=== PATIENT | female | born 1955 | race Caucasian/White ===

== ENCOUNTER 2016-12-23 11:57 | Emergency (ER) | payer MEDICAID ==
--- OUTSIDE RECORDS SUMMARY | 2016-12-23 13:11 | XMS REPORT | Continuity of Care Document ---
:1955 Author Organization [facility] ([facility]) Address [place] [address] Phone [phone] Care Team Providers Name Role Phone Isrrael Mo Primary Care Provider [phone] Source Comments This disclosure is being made pursuant to the Care Everywhere program, applicable federal and state laws, and may not contain all informaitonavailable regarding this patient.[facility] ([facility]) Active Allergies and Adverse Reactions No Known Allergies Current Medications Prescription Sig. Disp. Refills Start Date End Date Status levothyroxine (SYNTHROID) take 200 mcg by Active 200 mcg tablet mouth daily. simvastatin (ZOCOR) 40 mg take 40 mg by Active tablet mouth every evening. 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 Social History Tobacco Use Types Packs/Day Years Used Date Never Smoker Smokeless Tobacco: Never Used Last Filed Vital Signs Vital Sign Reading Time Taken Blood Pressure 141/74 09/25/2012 2:42 PM CDT Pulse 90 09/25/2012 2:42 PM CDT Temperature 37.1 C (98.8 F) 09/25/2012 2:42 PM CDT Respiratory Rate 16 03/27/2012 8:51 AM CDT Height 1.76 m (5' 9.29") 12/24/2008 8:37 AM CDT Weight 91 kg (200 lb 9.9 oz) 09/25/2012 2:42 PM CDT Body Mass Index 29.38 09/25/2012 2:42 PM CDT Oxygen Saturation 99% 03/27/2012 8:51 AM CDT Plan of Care Health Maintenance Due Date Last Done Comments HCV Screening 1955 Hepatitis B Vaccine (1 of 3 - Primary Series) 1955 Tdap Vaccine 1966 Lipid Disorder Screening 1973 Td Vaccine 1973 Cervical Cancer Screening 1985 Mammogram 1995 Colonoscopy 05/24/2005 Zoster Vaccine 2015 Influenza Vaccine: Seasonal (Season Ended) 2017 Results from Last 3 Months Not on file
[2016-12-23] MEDS ORDERED: KETOROLAC TROMETHAMINE 60 MG/2 ML VIAL IM ONE ×2 (13:14→13:37)
[2016-12-23] MEDS ORDERED: DIPHTH,PERTUSS(ACELL),TET VAC 0.5 ML VIAL IM ONE ×2 (13:23→13:38)
--- NOTE | 2016-12-23 14:48 | ERNOTE ---
Upper Extremity HPI - Narrative Date of Service: 12/23/16 - General Extremities Pain Location: thumb: right Time Seen by Provider: 12/23/16 12:55 Source: patient Exam Limitations: no limitations - Immun/Allergies/Home Medications Immunizations: IMMUNIZATION HX Immunizations Up to Date Yes History of Influenza Vaccine Yes Hx Pneumococcal Vaccination Yes Allergies/Adverse Reactions: Allergies Allergy/AdvReac Type Severity Reaction Status Date / Time No Known Allergies Allergy Verified 12/23/16 12:23 Home Medications: HOME MEDICATIONS Atorvastatin Calcium 20 mg PO DAILY 12/23/16 [Last Taken Unknown] Cephalexin Monohydrate [Keflex] 500 mg PO QID #20 cap 12/23/16 [Last Taken Unknown] HYDROcodone/ACETAMINOPHEN [Hydrocodon-Acetaminophen 5-325] 1 each PO TID PRN # 20 tablet 12/23/16 [Last Taken Unknown] Levothyroxine Sodium [Synthroid] 150 mcg PO DAILY 12/23/16 [Last Taken Unknown] - History of Present Illness Narrative: 1-year-old female presenting to the emergency room after sure her left thumb was crushed between a tire and a cinderblock. Patient has a hematoma under her left thumbnail. Patient also complains of pretty severe thumb pain. Date (Duration): 12/23/16 Occurred: just prior to arrival Location of Incident: home Severity: mild Method of Injury: Reports: direct blow Loss of Consciousness: Reports: no loss of consciousness Modifying Factors - (Improves): Reports: immobilization Modifying Factors - (Worsens): Reports: movement Other Injuries: Reports: none Review of Systems - Review of Systems Constitutional: Present: no symptoms reported EYE: Present: no symptoms reported ENT: Present: no symptoms reported Respiratory: Present: no symptoms reported Cardiology: Present: no symptoms reported Gastrointestinal/Abdominal: Present: no symptoms reported Genitourinary: Present: no symptoms reported Musculoskeletal: Present: See HPI Skin: Present: See HPI Neurological: Present: no symptoms reported Endocrine: Present: no symptoms reported Hematologic/Lymphatic: Present: no symptoms reported Psych: Present: no symptoms reported All Other Systems: All systems neg except as marked - Patient's Past Medical History Patient History - Medical: Hypothyroidism Patient History - Cardiac/Respiratory: Hyperlipidemia Patient History - Cancer: Breast Patient History - Surgical Procedures: Other Patient History - Other: None LMP (females 10-50): Menopausal - Social History Living Situations: home Abuse History: No History of abuse Psych History: No pertinent hx Smoking Status: Never smoker Alcohol Use: none Drug Use: none - Immunizations Immunizations Up to Date: Yes Hx Pneumococcal Vaccination: Yes History of Influenza Vaccine: Yes Physical Exam - Physical Exam Narrative: patiens left thumb has a large hematoma under nail bed. area is painful. General Appearance: Present: wd/wn, alert, mild distress Eye Exam: Normal inspection: bilateral Ears, Nose, Throat: Present: normal ENT inspection, normal pharynx Neck: Present: normal inspection, nontender Respiratory: Present: no respiratory distress, normal breath sounds, lungs clear Cardiovascular/Chest: Present: regular rate, rhythm, normal peripheral pulses Peripheral Pulses: N=norm/S=strong/W=weak/B=bound/A=absent: Radial (R): Normal, Radial (L): Normal Gastrointestinal/Abdominal: Present: normal bowel sounds Back Exam: Present: normal inspection, normal range of motion Extremity Exam: Present: normal except - - see note Neurological Exam: Present: alert, oriented, normal mood/affect Skin Exam: Present: normal color Lymphatic Exam: Present: no adenopathy ED Progress - Vital Signs Patient's Vital Signs:: I have reviewed the patient's vital signs. Vital Signs: Vital Signs 12/23/16 12:18 Temperature 36.6 C Pulse Rate 78 Respiratory 16 Rate Blood Pressure 151/102 O2 Sat by Pulse 99 Oximetry - X-Ray X-Ray #1 X-Ray: hand Interpretation: Reviewed by me X-ray Comments: Findings: There is narrowing of the interphalangeal joint with associated spurring. There may be a fractured spur along the ventral aspect of the interphalangeal joint. The remaining osseous structures of the thumb appear intact and I'm not convinced of fracture or dislocation. The first metacarpal/phalangeal joint is maintained. The first metacarpal appears normal. There is narrowing of the interphalangeal joints involving the remaining aspects of the hand suggesting early osteoarthritic change. I 'm not convinced of an acute osseous abnormality involving the remaining aspects of the hand on this AP projection. IMPRESSION: 1. NARROWING OF THE INTERPHALANGEAL JOINT OF THE THUMB WITH A QUESTIONABLE FRACTURED SPUR ALONG THE VENTRAL ASPECT OF THE JOINT. Electronically signed by Michele Hogan M.D.. - Progress/Reassessment Chief Complaint: Hand Injury/Pain Progress:: Improved Procedures Date and Time: performed with out incident, tolerated well. blood evacuated from nailbed, pain decreased after. Nail Trepanation Location: left thumb Method of Drainage: nail cauterized Finger Splint: Yes Complications: Pt andrew procedure well Departure Clinical Impression: Thumb fracture Qualifiers: Encounter type: initial encounter Fracture type: open Phalanx: distal Fracture alignment: nondisplaced Laterality: left Qualified Code(s): S62.525B - Nondisplaced fracture of distal phalanx of left thumb, initial encounter for open fracture Hematoma, subungual, thumb, left Qualifiers: Encounter type: initial encounter Qualified Code(s): S60.112A - Contusion of left thumb with damage to nail, initial encounter - Departure Disposition: Home Follow Up Needed Condition: Stable Instructions: Wound Infection, [id number] Additional Instructions: Continue to clean the wound as instructed. Follow-up through primary care physician in the next 2-3 days if needed. Return to the emergency room signed symptoms of infection develop. Continue any previous home medications as directed. Referrals: Blanca Chisholm DO [Primary Care Provider] - Prescriptions: Cephalexin Monohydrate [Keflex] 500 mg PO QID #20 cap HYDROcodone/ACETAMINOPHEN [Hydrocodon-Acetaminophen 5-325] 1 each PO TID PRN # 20 tablet PRN Reason: Pain
[2016-12-23 15:01] VITALS: BP 148/94
== END 2016-12-23 14:49 | disposition home or self-care (01) ==
LOC: ER 11:57
PROC: 0H9QXZZ Drainage of Finger Nail, External Approach (ICD-10-PCS; principal; 2016-12-23)
PROC: 2W3KX1Z Immobilization of Left Finger using Splint (ICD-10-PCS; 2016-12-23)
DX: S62.525B Nondisplaced fracture of distal phalanx of left thumb, initial encounter for open fracture (principal); S60.112A Contusion of left thumb with damage to nail, initial encounter; Z23 Encounter for immunization; X58.XXXA Exposure to other specified factors, initial encounter; Y93.9 Activity, unspecified; Y92.007 Garden or yard of unspecified non-institutional (private) residence as the place of occurrence of the external cause; Z85.3 Personal history of malignant neoplasm of breast; E03.9 Hypothyroidism, unspecified